=== PATIENT | female | born 1980 | race Caucasian/White ===

== ENCOUNTER → 2018-11-26 08:20 | Outpatient (CLI) | payer OTHER, MEDICAID, SELFPAY ==
[2018-11-26 09:21] LABS: Urine Amphetamines Negative (Negative); Urine Barbiturates Negative (Negative); Urine Benzodiazepines Negative (Negative); Urine Cocaine Negative (Negative); Urine MDMA Negative (Negative); Urine Methadone Negative (Negative); Urine Methamphetamines Negative (Negative); Urine Morphine/Opi cutoff 2000 Negative (Negative); Urine Oxycodone Negative (Negative); Urine Phencyclidine Negative (Negative); Urine Tetrahydrocannabinol Positive (Negative); Urine Tricyclic Antidepressant Negative (Negative)
[2018-11-26 09:25] LABS: Appearance Urine UA CLEAR; Bilirubin Urine UA NEGATIVE (NEGATIVE); Color Urine UA YELLOW; Glucose Urine UA NEGATIVE (Negative); Ketones Urine UA NEGATIVE (NEGATIVE); Leukocyte Esterase Urine UA NEGATIVE (NEGATIVE); Nitrite Urine UA NEGATIVE (Negative); Occult Blood Urine UA NEGATIVE (Negative); Protein Urine UA NEGATIVE (Negative); Specific Gravity Urine UA 1.025 (1.000-1.035); Urobilinogen Urine UA 0.2 E.U./dL (0.2)
[2018-11-26 09:38] LABS: Add Manual Diff / Slide Review NO; Basophils Absolute Auto 0 /uL (0-100); Basophils Percent Auto 0.1 % (0-2); Eosinophils Absolute Auto 100 /uL (0-450); Eosinophils Percent Auto 0.4 % (2-4); Hematocrit 41.1 % (36-46); Hemoglobin 13.7 g/dL (12.0-16.0); Lymphocytes Absolute Auto 2400 /uL (1100-4500); Lymphocytes Percent Auto 15.4 % (25-40); Mean Corpuscular HGB Conc 33.3 % (30-36); Mean Corpuscular Volume 89.9 fL (80-100); Monocytes Absolute Auto 800 /uL (0-900); Monocytes Percent Auto 5.1 % (3-14); Neutrophils Absolute Auto 12400 /uL (1500-7000); Platelet Count 178 X10^3/uL (150-400); Red Blood Cell Count 4.57 X10^6/uL (4.0-5.2); Red Cell Distribution Width 13.4 % (11.6-14.8); White Blood Cell Count 15.7 X10^3/uL (4.5-11.0)
[2018-11-26 09:56] LABS: Hemoglobin A1C% w Est Avg Glu 4.7 % (4.0-6.0)
[2018-11-26 10:11] LABS: Glucose 77 mg/dL (70-100)
[2018-11-26 10:40] LABS: Hepatitis B Surface Antigen NEGATIVE s/c (NEGATIVE); Rubella Antibody IgG 10.6 IU/mL (>15)
[2018-11-26 10:58] LABS: HIV 1 and 2 Antibody NEGATIVE (NEGATIVE); Hep C Virus Ab w/Reflex Quant NEGATIVE s/c (NEGATIVE)
[2018-11-28 17:07] LABS: RPR Screen Nonreactive (Nonreactive)
== END ==
DX: O09.219 Supervision of pregnancy with history of pre-term labor, unspecified trimester (principal); Z3A.24 24 weeks gestation of pregnancy
CPT/HCPCS: 36415; 80055; 80305; 81003; 82947; 83036; 86703; 86787; 86803; 86850; 86900; 86901; 87086

== ENCOUNTER 2018-12-02 11:48 | Inpatient (IN) | payer OTHER, MEDICAID, SELFPAY ==
[2018-12-02] MEDS: LACTATED RINGERS 1,000 ML 1000 ML IV (12:20)
--- NOTE | 2018-12-02 13:04 | DI.US.S_ITS ---
PROCEDURE: US OB TRANSVAGINAL INDICATIONS: CERVICAL LENGTH OUTSIDE/PRIOR DATING DATA: Last menstrual period (LMP): 06/03/18. LMP-based estimated date of delivery (CATHLEEN): 03/10/19. First dating scan (date and location): 11/19/18. Estimated date of delivery (CATHLEEN) from first dating scan: 04/04/19. TECHNIQUE: Real-time scanning was performed of the fetus, with image documentation. Endovaginal scanning: For improved evaluation of the cervix COMPARISON: None. FINDINGS: A single living intrauterine gestation is present. Presentation: Vertex. Placenta: Placental position is posterior, without previa. Amniotic fluid index: Not obtained. heart rate: 152 beats per minute. Maternal cervical canal: The cervical length is not measurable. There is a U-shaped, funneled cervix with a diameter of about 4.3 cm. Estimated gestational age from initial scan: 22 weeks, 3 days. IMPRESSION: Single living intrauterine in vertex presentation. Funneling and thinning of the cervix. The internal cervical os is open about 4.3 cm. The ordering physician was present during the scan. Dictated by: Shahida Horner M.D. on 12/02/2018 at 14:39 Approved by: Shahida Horner M.D. on 12/02/2018 at 14:44
--- NOTE | 2018-12-02 13:18 | PM.OBTRLD ---
[facility] Social History Smoking Status: Current every day smoker Social History Smoking Status: Current every day smoker Review of Systems Review of Systems All systems reviewed & are unremarkable except as noted in HPI and below Exam Vital Signs (past 8 hours): 24 cm fundus no contractions after empting bladder category 1 tracing Evaluation Evaluation Variability: Minimal (3-5) monitor accelerations: Absent monitor decelerations: Absent Contraction Frequency (minutes): 0 Category of Tracing: I Comments: cervical length ordered for evaluation Diagnosis, Plan/Disposition Plan/Disposition Plan: cervical length: not measureable OB Disposition: tertiary care transfer
[2018-12-02 13:24] LABS: Appearance Urine UA CLEAR; Bilirubin Urine UA NEGATIVE (NEGATIVE); Color Urine UA YELLOW; Glucose Urine UA NEGATIVE (Negative); Ketones Urine UA NEGATIVE (NEGATIVE); Leukocyte Esterase Urine UA NEGATIVE (NEGATIVE); Nitrite Urine UA NEGATIVE (Negative); Occult Blood Urine UA 1+ (Negative); Protein Urine UA NEGATIVE (Negative); Specific Gravity Urine UA 1.015 (1.000-1.035); Urobilinogen Urine UA 0.2 E.U./dL (0.2)
--- NOTE | 2018-12-02 13:42 | PM.OBHP.1 ---
OB HPI Date/Time Date of admission: 12/02/18 Date Patient Seen: 12/02/18 Time Patient Seen: 13:42 History of Present Condition Chief complaint: OBS : 5 Para: 4 Estimated Date of Delivery: 04/04/19 Estimated Gestational Age (weeks): 22 Narrative: Eleanor Thompson is a 38 year old female Comments: Patient is a 38-year-old white femae five para four. All babies delivered at approximately 22 weeks. In one the patient had a cerclage. That baby survived at 23 weeks of . Patient is again . She presented at 20 weeks what appeared to be a normally grown . Her cervical length measured 4 cm on that visit and on the subsequent visit. Walters was ordered but never given because of authorization issues. Drug screen was done and was negative except for marijuana. Laboratory studies are included in the chart. Patient presents with contraction which abated after emptying her bladder. Cervical length however shows virtually no cervix and a bulging bag. History of Present care: limited care Dating criteria: LMP confirmed by 2nd trimester US Ultrasounds: normal mid trimester US Obstetrical complications: labor Medical complications: none Preadmission Labs -: Antibody screen: negative, Cystic fibrosis screen: unknown, GBS status: unknown, HBsAG: negative, HIV: negative, HSV 1: negative, HSV 2: negative and RPR/VDLR: negative -: Chlamydia screen: detected (Negative) and Gonorrhea screen: detected (Negative) -: Rubella: immune and Varicella: immune Integrated screen: Not done not done Sequential screen: Not done Evaluation Evaluation Variability: Minimal (3-5) monitor accelerations: Absent monitor decelerations: Absent Contraction Frequency (minutes): 0 Category of Tracing: I Laboratory results: Laboratory Tests 12/02/18 12:00 Urine Color Yellow Urine Appearance Clear Urine pH 8.0 Ur Specific [place] 1.015 Urine Protein Negative Urine Glucose (UA) Negative Urine Ketones Negative Urine Occult Blood 1+ H Urine Nitrate Negative Urine Bilirubin Negative Urine Urobilinogen 0.2 Ur Leukocyte Esterase Negative PFS Social History Smoking Status: Current every day smoker Social History Smoking Status: Current every day smoker Meds Home Medications Medication Instructions Recorded Confirmed Type Lansoprazole (Prevacid) 15 mg PO Q DAY #0 05/01/06 11/18/18 History Loratadine (Claritin) 10 mg PO Q DAY #0 05/01/06 11/18/18 History 1 tab PO DAILY 11/18/18 11/18/18 History vitamin,calcium,kjqdsxho-qdcw-bpiic acid tablet hydroxyprogesterone(PF)(preg 275 mg SUBCUT QWEEK #1.1 ml 11/26/18 11/26/18 Rx preserv) 275 mg/1.1 mL subcut auto-inject Allergies Allergy/AdvReac Type Severity Reaction Status Date / Time Sulfa (Sulfonamide Allergy Unknown Verified 12/02/18 12:26 Antibiotics) Opioids - Morphine Analogues Allergy Verified 11/18/18 11:09 Review of Systems Review of Systems All systems reviewed & are unremarkable except as noted in HPI and below Exam Const General: cooperative and healthy appearing [facility] Head: normal to inspection Ears: hearing grossly normal bilaterally Nose: external nose normal Face and sinus: normal facial exam Mouth: oral mucosae normal, lip normal, tongue normal and moist mucous membranes Teeth and gingiva: dentition normal Throat: posterior oropharynx normal Eyes General: appearance normal, both eyes and all related structures Neck Neck: normal visual inspection and full ROM Chest Chest: normal inspection of the chest and normal palpation of entire chest wall Breast inspection: normal inspection of the breasts and normal inspection of the axillae Breast Palpation: normal palpation of the breasts and normal palpation of the axillae Resp Effort & Inspection: normal respiratory effort Auscultation: clear to auscultation bilaterally Cardio Palpation: normal PMI Rate: regular rate Rhythm: regular rhythm Heart Sounds: S1 normal and S2 normal GI Inspection: normal to inspection Palpation: soft and no hepatosplenomegaly Percussion: normal to percussion Auscultation: normal bowel sounds Manual OB Exam: dilated Uterus Location (Fundal Height): 2 Presentation: vertex Estimated Weight (lbs): 1 Back/Spine/Pelvis Thoracic/Lumbar Spine: thoracic and lumbar spine normal to inspection Skin General: no rashes or lesions noted Neuro General: alert, oriented x3, tone normal and moves all extremities Cognition: normal cognition Speech: speech normal Gait: normal gait Motor: muscle tone normal throughout Sensory Exam: no sensory deficits noted Extrem General: normal to inspection and normal exam except as noted Psych Appearance: grossly normal and well kempt Mental Status: mental status grossly normal Speech and Movement: speech and movement normal Objective Labs Labs: Laboratory Results - last 24 hr 12/02/18 12:00 Urine Color Yellow Urine Appearance Clear Urine pH 8.0 Ur Specific [place] 1.015 Urine Protein Negative Urine Glucose (UA) Negative Urine Ketones Negative Urine Occult Blood 1+ H Urine Nitrate Negative Urine Bilirubin Negative Urine Urobilinogen 0.2 Ur Leukocyte Esterase Negative Assessment and Plan Assessment and Plan Assessment and Plan narrative: Pre term premature cervical dilatation History of pre term labor x4 Plan is for magnesium sulfate 4 g/betamethasone 12 mg Transfer to [facility]
[2018-12-02 13:43] LABS: Urine Amphetamines Negative (Negative); Urine Barbiturates Negative (Negative); Urine Benzodiazepines Negative (Negative); Urine Cocaine Negative (Negative); Urine MDMA Negative (Negative); Urine Methadone Negative (Negative); Urine Methamphetamines Negative (Negative); Urine Morphine/Opi cutoff 2000 Negative (Negative); Urine Phencyclidine Negative (Negative); Urine Tetrahydrocannabinol Positive (Negative)
[2018-12-02 13:44] LABS: Urine Oxycodone Negative (Negative); Urine Tricyclic Antidepressant Negative (Negative)
--- NOTE | 2018-12-02 13:45 | P.HPOB_ITS ---
OB HPI Date/Time Date of admission: 12/02/18 Date Patient Seen: 12/02/18 Time Patient Seen: 13:42 History of Present Condition Chief complaint: OBS : 5 Para: 4 Estimated Date of Delivery: 04/04/19 Estimated Gestational Age (weeks): 22 Narrative: Eleanor Thompson is a 38 year old female Comments: Patient is a 38-year-old white femae five para four. All babies delivered at approximately 22 weeks. In one the patient had a cerclage. That baby survived at 23 weeks of . Patient is again . She presented at 20 weeks what appeared to be a normally grown . Her cervical length measured 4 cm on that visit and on the subsequent visit. Walters was ordered but never given because of authorization issues. Drug screen was done and was negative except for marijuana. Laboratory studies are included in the chart. Patient presents with contraction which abated after emptying her bladder. Cervical length however shows virtually no cervix and a bulging bag. History of Present care: limited care Dating criteria: LMP confirmed by 2nd trimester US Ultrasounds: normal mid trimester US Obstetrical complications: labor Medical complications: none Preadmission Labs -: Antibody screen: negative, Cystic fibrosis screen: unknown, GBS status: unknown, HBsAG: negative, HIV: negative, HSV 1: negative, HSV 2: negative and RPR/VDLR: negative -: Chlamydia screen: detected (Negative) and Gonorrhea screen: detected (Negative) -: Rubella: immune and Varicella: immune Integrated screen: Not done not done Sequential screen: Not done Evaluation Evaluation Variability: Minimal (3-5) monitor accelerations: Absent monitor decelerations: Absent Contraction Frequency (minutes): 0 Category of Tracing: I Laboratory results: Laboratory Tests 12/02/18 12:00 Urine Color Yellow Urine Appearance Clear Urine pH 8.0 Ur Specific [place] 1.015 Urine Protein Negative Urine Glucose (UA) Negative Urine Ketones Negative Urine Occult Blood 1+ H Urine Nitrate Negative Urine Bilirubin Negative Urine Urobilinogen 0.2 Ur Leukocyte Esterase Negative PFS Social History Smoking Status: Current every day smoker Social History Smoking Status: Current every day smoker Meds Home Medications Medication Instructions Recorded Confirmed Type Lansoprazole (Prevacid) 15 mg PO Q DAY #0 05/01/06 11/18/18 History Loratadine (Claritin) 10 mg PO Q DAY #0 05/01/06 11/18/18 History 1 tab PO DAILY 11/18/18 11/18/18 History vitamin,calcium,lgiwotrq-neks-pezxe acid tablet hydroxyprogesterone(PF)(preg 275 mg SUBCUT QWEEK #1.1 ml 11/26/18 11/26/18 Rx preserv) 275 mg/1.1 mL subcut auto-inject Allergies Allergy/AdvReac Type Severity Reaction Status Date / Time Sulfa (Sulfonamide Allergy Unknown Verified 12/02/18 12:26 Antibiotics) Opioids - Morphine Analogues Allergy Verified 11/18/18 11:09 Review of Systems Review of Systems All systems reviewed & are unremarkable except as noted in HPI and below Exam Const General: cooperative and healthy appearing [facility] Head: normal to inspection Ears: hearing grossly normal bilaterally Nose: external nose normal Face and sinus: normal facial exam Mouth: oral mucosae normal, lip normal, tongue normal and moist mucous membranes Teeth and gingiva: dentition normal Throat: posterior oropharynx normal Eyes General: appearance normal, both eyes and all related structures Neck Neck: normal visual inspection and full ROM Chest Chest: normal inspection of the chest and normal palpation of entire chest wall Breast inspection: normal inspection of the breasts and normal inspection of the axillae Breast Palpation: normal palpation of the breasts and normal palpation of the ax illae Resp Effort & Inspection: normal respiratory effort Auscultation: clear to auscultation bilaterally Cardio Palpation: normal PMI Rate: regular rate Rhythm: regular rhythm Heart Sounds: S1 normal and S2 normal GI Inspection: normal to inspection Palpation: soft and no hepatosplenomegaly Percussion: normal to percussion Auscultation: normal bowel sounds Manual OB Exam: dilated Uterus Location (Fundal Height): 2 Presentation: vertex Estimated Weight (lbs): 1 Back/Spine/Pelvis Thoracic/Lumbar Spine: thoracic and lumbar spine normal to inspection Skin General: no rashes or lesions noted Neuro General: alert, oriented x3, tone normal and moves all extremities Cognition: normal cognition Speech: speech normal Gait: normal gait Motor: muscle tone normal throughout Sensory Exam: no sensory deficits noted Extrem General: normal to inspection and normal exam except as noted Psych Appearance: grossly normal and well kempt Mental Status: mental status grossly normal Speech and Movement: speech and movement normal Objective Labs Labs: Laboratory Results - last 24 hr 12/02/18 12:00 Urine Color Yellow Urine Appearance Clear Urine pH 8.0 Ur Specific [place] 1.015 Urine Protein Negative Urine Glucose (UA) Negative Urine Ketones Negative Urine Occult Blood 1+ H Urine Nitrate Negative Urine Bilirubin Negative Urine Urobilinogen 0.2 Ur Leukocyte Esterase Negative Assessment and Plan Assessment and Plan Assessment and Plan narrative: Pre term premature cervical dilatation History of pre term labor x4 Plan is for magnesium sulfate 4 g/betamethasone 12 mg Transfer to [facility]
[2018-12-02] MEDS: MAGNESIUM SULFATE 4 GM/100 ML PIGGYBACK IV (14:00)
[2018-12-02] MEDS: BETAMETHASONE 30 MG/5 ML MDV 12 MG IM (14:10)
[2018-12-02] MEDS: MAGNESIUM SULFATE 20 GM/500 ML IV.SOLN IV (14:25)
[2018-12-02] MEDS: INDOMETHACIN 25 MG CAPSULE 50 MG PO (14:35)
[2018-12-02 15:00] LABS: Aspartate Aminotransferase 18 IU/L (14-36); BUN Creatinine Ratio 26.7 (6-22); Blood Urea Nitrogen 8 mg/dL (7-17); Estimated Glomerular Filt Rate > 60.0 mL/min (>60); Uric Acid 3.1 mg/dL (2.5-6.2)
[2018-12-02 15:01] LABS: Carbon Dioxide 21 mmol/L (22-32); Chloride 106 mmol/L (98-107); HEMOLYSIS < 15 (0-50); Magnesium 4.2 mg/dL (1.6-2.3); Sodium 134 mmol/L (137-145)
[2018-12-02 15:04] LABS: Add Manual Diff / Slide Review NO; Basophils Absolute Auto 200 /uL (0-100); Eosinophils Absolute Auto 100 /uL (0-450); Eosinophils Percent Auto 0.4 % (2-4); Hematocrit 37.3 % (36-46); Hemoglobin 12.8 g/dL (12.0-16.0); Lymphocytes Absolute Auto 3000 /uL (1100-4500); Lymphocytes Percent Auto 14.1 % (25-40); Mean Corpuscular HGB Conc 34.2 % (30-36); Mean Corpuscular Hemoglobin 30.2 PG (26-34); Mean Corpuscular Volume 88.1 fL (80-100); Monocytes Absolute Auto 1100 /uL (0-900); Monocytes Percent Auto 5.1 % (3-14); Neutrophils Absolute Auto 16700 /uL (1500-7000); Neutrophils Percent Auto 79.4 % (50-75); Platelet Count 222 X10^3/uL (150-400); Red Blood Cell Count 4.23 X10^6/uL (4.0-5.2); Red Cell Distribution Width 13.2 % (11.6-14.8); White Blood Cell Count 21.1 X10^3/uL (4.5-11.0)
[2018-12-02] MEDS: AMPICILLIN 2,000 MG in SODIUM CHLORIDE 0.9% 100 ML 200 ML IV (15:18)
== END 2018-12-02 15:24 | disposition short-term general hospital (02) | DRG 563 ==
PROVIDERS: Specialist
DX: O60.02 Preterm labor without delivery, second trimester (principal); Z3A.22 22 weeks gestation of pregnancy; F17.210 Nicotine dependence, cigarettes, uncomplicated; F12.929 Cannabis use, unspecified with intoxication, unspecified
CPT/HCPCS: 59025; 59050; 76817; 80051; 80305; 81003; 83735; 84450; 84550; 85025; 86850; 86900; 86901; 87086; 96360; 96361; 96372; G0378; G0379; J0290; J0702; J3475

== ENCOUNTER → 2021-10-23 09:41 | Outpatient (CLI) | payer OTHER, MEDICAID, SELFPAY ==
[2021-10-23 10:25] LABS: Specimen Label NATERA KIT
[2021-10-23 10:30] LABS: Add Manual Diff / Slide Review NO; Basophils Absolute Auto 100 /uL (0-100); Basophils Percent Auto 0.6 % (0-2); Eosinophils Absolute Auto 100 /uL (0-450); Eosinophils Percent Auto 0.4 % (2-4); Hematocrit 38.8 % (36-46); Hemoglobin 13.3 g/dL (12.0-16.0); Lymphocytes Absolute Auto 2400 /uL (1100-4500); Lymphocytes Percent Auto 12.5 % (25-40); Mean Corpuscular HGB Conc 34.3 % (30-36); Mean Corpuscular Hemoglobin 28.9 PG (26-34); Mean Corpuscular Volume 84.2 fL (80-100); Monocytes Absolute Auto 800 /uL (0-900); Monocytes Percent Auto 4.4 % (3-14); Neutrophils Absolute Auto 15500 /uL (1500-7000); Neutrophils Percent Auto 82.1 % (50-75); Platelet Count 236 X10^3/uL (150-400); Red Blood Cell Count 4.61 X10^6/uL (4.0-5.2); Red Cell Distribution Width 13.9 % (11.6-14.8); White Blood Cell Count 18.9 X10^3/uL (4.5-11.0)
[2021-10-23 10:53] LABS: Appearance Urine UA CLEAR; Bilirubin Urine UA NEGATIVE (NEGATIVE); Color Urine UA YELLOW; Glucose Urine UA TRACE g/dL (Negative); Ketones Urine UA NEGATIVE (NEGATIVE); Leukocyte Esterase Urine UA NEGATIVE (NEGATIVE); Nitrite Urine UA NEGATIVE (Negative); Occult Blood Urine UA TRACE-LYSED (Negative); Protein Urine UA TRACE (Negative); Specific Gravity Urine UA 1.025 (1.000-1.035); Urobilinogen Urine UA 0.2 E.U./dL (0.2)
[2021-10-24 06:23] LABS: RPR Screen Non Reactive (Non Reactive)
[2021-10-24 07:37] LABS: Varicella IgG Antibody 631 index (Immune >165)
[2021-10-25 17:20] LABS: Hepatitis B Surface Antigen NEGATIVE s/c (NEGATIVE); Rubella Antibody IgG 13.6 IU/mL (>15)
[2021-10-25 17:37] LABS: HIV 1 & 2 Ab/Ag 4th Gen Combo NEGATIVE (NEGATIVE); Hep C Virus Ab w/Reflex Quant NEGATIVE s/c (NEGATIVE)
== END ==
PROVIDERS: Referring Provider Obstetrics & Gynecology; Visit Provider Obstetrics & Gynecology
DX: Z34.82 Encounter for supervision of other normal pregnancy, second trimester (principal)
CPT/HCPCS: 80055; 81003; 86787; 86803; 86850; 86900; 86901; 87086; 87389